=== PATIENT | female | born 1990 | race Two or more races ===

== ENCOUNTER 2024-01-16 14:24 | Outpatient (CLI) | payer OTHER | END 2024-01-16 14:25 | disposition home or self-care (01) | LOC: PRENATAL 14:24 | PROVIDERS: ATTEND Obstetrics & Gynecology Maternal & Fetal Medicine | DX: O26.849 Uterine size-date discrepancy, unspecified trimester (principal); O36.8199 Decreased fetal movements, unspecified trimester, other fetus; O99.019 Anemia complicating pregnancy, unspecified trimester; Z3A.32 32 weeks gestation of pregnancy ==

== ENCOUNTER 2024-02-26 13:01 | Inpatient (IN) | payer OTHER ==
[~2024-02-26] VITALS: Ht 160 cm; Wt 97.5 kg
[2024-03-11] MEDS ORDERED: RINGERS SOLUTION,LACTATED 1,000 ML IV SCH ×2 (05:30→17:15)
[2024-03-11] MEDS ORDERED: AMPICILLIN SODIUM 2,000 MG VIAL IV ONE (05:30)
[2024-03-11 05:53] VITALS: BP 112/81
[2024-03-11 06:20] VITALS: BP 112/81
[2024-03-11 06:47] LABS: URINE APPEARANCE Cloudy; URINE BILIRRUBIN Negative (NEGATIVE); URINE BLOOD Trace; URINE COLOR Yellow; URINE GLUCOSE Negative (NEGATIVE); URINE KETONE Trace (NEGATIVE); URINE LEUKOCYTE Moderate; URINE NITRATE Negative; URINE PROTEIN Trace (NEGATIVE)
[2024-03-11 06:50] LABS: HEMATOCRIT 34.9 % (36.0-45.00); HEMOGLOBIN 12.2 g/dL (12.0-15.00); MEAN CELL VOLUME 92.7 fL (80.00-100.00); MEAN CORPUSCULAR HEMOGLOBIN 32.5 pg (27.00-32.0); PLATELET COUNT 212 K/uL (150-450); RED BLOOD COUNT 3.76 M/uL (4.00-6.00); RED CELL DISTRIBUTION WIDTH 13.9 % (11.5-14.5); URINE BACTERIA 3414.8 uL (0.0-1933); URINE EPITHELIAL CELLS 82.4 uL (0.0-38.8); URINE RBC 6.6 uL (0.0-20.8); URINE WBC 146.2 uL (0.0-23.2)
[2024-03-11] MEDS ORDERED: PRENATAL + DHA1 EAC1 PO (06:55)
[2024-03-11 07:03] LABS: URINE CAST 1.03 uL (0.0-1.40)
[2024-03-11 07:13] LABS: INR < 0.93; PARTIAL THROMBOPLASTIN TIME 27.5 SECONDS (22.0-34.0)
[2024-03-11 07:24] LABS: ALBUMIN 2.8 gm/dL (3.4-5.0); BILIRUBIN TOTAL 0.35 mg/dL (0.3-1.2); CALCIUM 9.1 mg/dL (8.5-10.1); CREATININE SERUM 0.72 mg/dL (0.55-1.02); GFR 93.29; GLOBULINA 3.8 G/DL (2.4-3.5); POTASSIUM 4.37 mEq/L (3.5-5.1); TOTAL PROTEIN 6.6 gm/dL (6.4-8.2)
[2024-03-11 07:33] VITALS: BP 121/80
[2024-03-11] MEDS ORDERED: MISOPROSTOL 50 MCG TABLET VAG ONE (08:45)
[2024-03-11] MEDS ORDERED: AMPICILLIN SODIUM 1,000 MG VIAL IV SCH (09:00)
[2024-03-11 11:37] VITALS: BP 135/82
[2024-03-11] MEDS ORDERED: CEFAZOLIN SODIUM 1,000 MG VIAL IV ONE (14:30)
[2024-03-11] MEDS ORDERED: OXYTOCIN 1,000 ML IV SCH (17:15)
[2024-03-11] MEDS ORDERED: KETOROLAC TROMETHAMINE 30 MG VIAL IV SCH (17:15)
[2024-03-11] MEDS ORDERED: CHLORHEXIDINE GLUCONATE 120 ML BOTTLE TP SCH (17:15)
[2024-03-11] MEDS ORDERED: FAMOTIDINE/PF 20 MG/2 ML VIAL IV SCH (17:17)
[2024-03-11] MEDS ORDERED: ONDANSETRON HCL 2 MG/ML VIAL IV PRN (17:30)
[2024-03-11] MEDS ORDERED: MEPERIDINE HCL/PF 25 MG/ML VIAL IV PRN (17:30)
[2024-03-11] MEDS ORDERED: PROMETHAZINE HCL 25 MG/ML AMPUL IV PRN (17:30)
[2024-03-11] MEDS ORDERED: MORPHINE SULFATE 4 MG/ML VIAL IV ONE (18:05)
[2024-03-11] MEDS ORDERED: OXYTOCIN 10 UNITS/ML VIAL IV ONE (18:45)
[2024-03-11] MEDS ORDERED: ERYTHROMYCIN BASE OPHT 1GM EACH TUBE OP ONE (18:45)
[2024-03-11 21:43] VITALS: BP 128/79
[2024-03-11 21:45] LABS: HEMATOCRIT 31.4 % (36.0-45.00); HEMOGLOBIN 10.6 g/dL (12.0-15.00); MEAN CORPUSCULAR HEMOGLOBIN 31.8 pg (27.00-32.0); MEAN CORPUSCULAR HGB CONC 33.9 g/dl (32.0-36.0); PLATELET COUNT 168 K/uL (150-450); RED BLOOD COUNT 3.34 M/uL (4.00-6.00); RED CELL DISTRIBUTION WIDTH 13.6 % (11.5-14.5)
[2024-03-12 00:46] VITALS: BP 109/71
[2024-03-12] MEDS ORDERED: OxyCODONE HCL/APAP UD (PERCOCET) PO PRN (08:00)
[2024-03-12] MEDS ORDERED: SIMETHICONE 125 MG CAPSULE PO SCH (09:00)
[2024-03-12] MEDS ORDERED: DOCUSATE SODIUM 100MG CAP PO SCH (09:00)
[2024-03-12] MEDS ORDERED: IBUprofen 800 MG TABLET PO PRN (09:00)
[2024-03-12 11:06] VITALS: BP 127/89
[2024-03-12 16:00] VITALS: BP 126/80
[2024-03-13 01:16] VITALS: BP 126/83
[2024-03-13 08:00] VITALS: BP 127/80
[2024-03-13 16:00] VITALS: BP 117/80
[2024-03-14 01:25] VITALS: BP 128/85
[2024-03-14 08:46] VITALS: BP 119/87
[2024-03-14 15:42] VITALS: BP 130/60
== END 2024-03-14 18:50 | disposition home or self-care (01) | DRG 788 ==
LOC: OB/GYN 03-09 13:30 → LDR 03-11 05:20 → OB/GYN 03-11 15:53
PROVIDERS: ADMIT General Practice; ATTEND General Practice
PROC: 3E0P7VZ Introduction of Hormone into Female Reproductive, Via Natural or Artificial Opening (ICD-10-PCS; 2024-03-11)
PROC: 4A1HXCZ Monitoring of Products of Conception, Cardiac Rate, External Approach (ICD-10-PCS; 2024-03-11)
PROC: 10D00Z1 Extraction of Products of Conception, Low, Open Approach (ICD-10-PCS; principal; 2024-03-12)
PROC: 3E033VJ Introduction of Other Hormone into Peripheral Vein, Percutaneous Approach (ICD-10-PCS; 2024-03-12)
DX: O36.8330 Maternal care for abnormalities of the fetal heart rate or rhythm, third trimester, not applicable or unspecified (principal); Z3A.40 40 weeks gestation of pregnancy; Z37.0 Single live birth; Z20.822 Contact with and (suspected) exposure to COVID-19

== ENCOUNTER 2024-03-09 10:43 | Outpatient (CLI) | payer OTHER | END 2024-03-09 11:13 | disposition home or self-care (01) | LOC: NST 10:43 | PROVIDERS: ATTEND General Practice | DX: Z34.83 Encounter for supervision of other normal pregnancy, third trimester (principal) ==